=== PATIENT | male | born 1950 | race Caucasian/White ===

== ENCOUNTER → 2021-02-08 12:57 | Outpatient (BNVA) | payer OTHER, SELFPAY | PROVIDERS: Visit Provider Counselor Professional | DX: F43.12 Post-traumatic stress disorder, chronic (principal); F41.1 Generalized anxiety disorder | CPT/HCPCS: 90791 ==

== ENCOUNTER → 2021-11-08 09:00 | Outpatient (BNVA) | payer OTHER, SELFPAY | PROVIDERS: PCP Internal Medicine; Visit Provider Social Worker Clinical | DX: F43.12 Post-traumatic stress disorder, chronic (principal); F41.1 Generalized anxiety disorder | CPT/HCPCS: 90834 ==